=== PATIENT | male | born 1950 | race Caucasian/White ===

== ENCOUNTER 2016-12-07 14:09 | Inpatient (IN) ==
[2016-12-07] MEDS ORDERED: traMADol 50 MG TABLET PO PRN (14:14)
[2016-12-07] MEDS ORDERED: ACETAMINOPHEN 325 MG TABLET PO PRN (14:14)
[2016-12-07] MEDS ORDERED: ONDANSETRON 4 MG/2 ML VIAL IV PRN (14:14)
--- NOTE | 2016-12-07 15:34 | Internal Med History&Physical ---
Assessment and Plan (1) Acute urinary tract infection Status: Acute Assessment and plan: 66-year-old male admitted to acute care * Acute urinary tract infection with flank pain. I am concerned about septicemia. Start patient on broad-spectrum antibiotics. Will also get blood cultures. Urine cultures were done in the office. His white count is quite high. We will start him on IV fluids. * Hypertension. We will continue his blood pressure medication if his pressure remained stable * Hyperlipidemia. Continue current treatment * GERD. He will be continued on his medications. * Discussed with patient and his Current Visit: Yes (2) Hyperlipidemia Status: Acute Current Visit: Yes (3) Hypertension Status: Acute Current Visit: Yes (4) Gastroesophageal reflux disease Status: Acute Current Visit: Yes (5) Osteoarthritis Status: Acute Current Visit: Yes History of Present Illness Chief complaint: High-grade fever with dysuria and back pain History of present illness: Mr. Lara is a 66 year old male with history of hypertension, hyperlipidemia, gastroesophageal reflux disease and osteoarthritis who presented to the office with 24 hours complaining of 24 hours history of lower back pain associated with urgency frequency dysuria and incontinence of urine. He has been running high grade fever especially during the last night. He feels quite sick and not well. He has been dizzy at times. He denies any nausea vomiting or diarrhea. He denies any chest pain or shortness of breath. He lives at home with his . No history of smoking or alcohol use Medications Lipitor 10 mg daily HCTZ 25 mg daily Atenolol 100 mg daily Nifedipine ER 90 mg daily Prevacid 15 mg daily Micro-K 8 mEq daily Mobic 7.5 mg daily Medical,Surgical,& Family Hx - Medical History Cardio: History of: Hypertension Endocrine: History of: Dyslipidemia Genitourinary: History of: Prostate Problems (TURP) Gastrointestinal: History of: GERD Musculoskeletal: History of: Back/Neck Problems, Musculoskeletal Problems ( Degenerative disc disease) - Surgical History Reproductive Surgeries: Surgical HX of;: Prostate Surgery (TURP) Additional Surgical History: Surgery for nerve entrapment - Family History Family History: Reports;: Family Heart Disease, Family Hypertension, Family Stroke - Social History Smoking Status: Never smoker Frequency of Alcohol Use: None Marital Status: Lives With:: Spouse Functional capacity: independent ambulation 12 point system: reviewed and no additional remarkable complaints except as stated (As mentioned in HPI) Exam - Constitutional Exam: Examination: GENERAL: NAD. Ill-appearing male HEENT: PERRLA. EOMI. Mucous membranes are moist. NECK: Neck is supple. No JVD. No carotid bruit. No thyromegaly. CVS: Regular rate and rhythm. S1 and S2 are normal. RESPIRATORY: Lungs are clear. No rales or rhonchi. ABDOMEN: Soft and nontender. Bowel sounds are present. No hepatosplenomegaly. Tenderness is present in the right flank posteriorly EXT: No edema. Peripheral pulses are present. 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 Cranial nerves II through XII are grossly intact. Motor strength is 5 over 5 both upper and lower extremities. SKIN: Warm and dry. MSK: No obvious deformity. Results - Labs Labs: His white count is 26,000. H&H is 14.8 and 41.7. Neutrophil count is 87%. Potassium is 3.4. BUN and creatinine is 20 and 1.09. Urinalysis shows 15-25 WBCs with 1+ bacteria and small blood and leukocyte esterase with positive nitrite
[2016-12-07] MEDS ORDERED: POTASSIUM CHLORIDE 8 MEQ CAPSULE PO SCH (16:00)
[2016-12-07 16:04] LABS: Basophils # 0.1 10*3/uL (0.0-0.2); Basophils % 0.3 % (0.0-0.8); Immature Granulocytes % 1.2 %; Immature Granulocytes Absolute 0.32 #; Lymphocytes % 7.3 % (21.2-54.2); Mean Corpuscular HGB Conc 34.9 GM/DL (32-36); Mean Corpuscular Hemoglobin 30 PG (27-34); Mean Corpuscular Volume 85.8 FL (87-102); Mean Platelet Volume 11.4 FL (9.6-12.0); Monocytes # 1.6 10*3/uL (0.11-0.8); Monocytes % 5.7 % (1.7-12.7); Neutrophils # 23.4 10*3/uL (1.4-7.4); Neutrophils % 85.5 % (38.7-73.9); Platelet Count 221 T/CUMM (130-400); Red Blood Count 5.01 MC/CUMM (3.8-5.5); Red Cell Distribution Width 13.3 % (9.3-17.3); White Blood Count 27.4 T/CUMM (4-12)
[2016-12-07 17:42] LABS: Band Neutrophils 2 % (0-10); Lymphocytes 13 % (20-55); Platelet Estimate Normal; Segmented Neutrophils 83 % (50-85); Total Cells Counted 100
[2016-12-07] MEDS: cefTRIAXone 1,000 MG in SODIUM CHLORIDE 0.9% 100 ML IV SCH (17:52)
[2016-12-07] MEDS: SODIUM CHLORIDE 0.9% 1,000 ML IV SCH (17:52)
[2016-12-07] MEDS: LEVOFLOXACIN INJ 500 MG in PREMIX 1 EACH IV SCH (17:54)
[2016-12-07] MEDS: ATORVASTATIN 10 MG TABLET PO SCH (21:02)
[2016-12-07] MEDS: DOCUSATE SODIUM 100 MG CAPSULE PO SCH (21:03)
[2016-12-08] MEDS: SODIUM CHLORIDE 0.9% 1,000 ML IV SCH ×4 (03:50→13:31)
[2016-12-08 05:58] LABS: Calcium 8.3 MG/DL (8.5-10.1); Osmolality,Calculated 285.1 MOS/KG (273-304); Potassium 3.2 MMOL/L (3.5-5.1)
--- NOTE | 2016-12-08 08:29 | Internal Med Progress Note ---
Assessment and Plan (1) Acute urinary tract infection Status: Acute Assessment and plan: 66-year-old male admitted to acute care * Acute urinary tract infection with flank pain. Clinically he looks better. Continue IV antibiotics. Cultures are pending * Hypertension. Stable * Hyperlipidemia. Stable * GERD. He will be continued on his medications. * Continue current treatment Current Visit: Yes (2) Hyperlipidemia Status: Acute Current Visit: Yes (3) Hypertension Status: Acute Current Visit: Yes (4) Gastroesophageal reflux disease Status: Acute Current Visit: Yes (5) Osteoarthritis Status: Acute Current Visit: Yes Internal Medicine - PN: Subj Interval history: He is feeling better today. He is still having dysuria. His temperature was over 102 last night. Exam (Progress Note) - Constitutional Vitals: Period Temp Pulse Resp BP Sys/Lucio Pulse Ox Last 24 Hr 98.7 F-102.0 F 57-65 18-20 107-139/48-89 93-95 Exam: Examination: GENERAL: NAD. HEENT: PERRLA. EOMI. NECK: Neck is supple. CVS: Regular rate and rhythm. S1 and S2 are normal. RESPIRATORY: Lungs are clear. ABDOMEN: Soft and nontender. Bowel sounds are present. No hepatosplenomegaly. EXT: No edema. Peripheral pulses are present. 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 Results - Labs CBC & BMP: 12/07/16 15:47 12/08/16 05:17 Lab Results: I have reviewed the past 24 hour labs
[2016-12-08] MEDS ORDERED: POTASSIUM CHLORIDE 8 MEQ CAPSULE PO SCH (09:00)
[2016-12-08] MEDS: POTASSIUM CHLORIDE 8 MEQ CAPSULE PO SCH ×3 (09:18→21:42)
[2016-12-08] MEDS: hydroCHLOROthiazide 25 MG TABLET PO SCH (09:19)
[2016-12-08] MEDS: ATENOLOL 100 MG TABLET PO SCH (09:19)
[2016-12-08] MEDS: PANTOPRAZOLE 40 MG TABLET PO SCH ×2 (09:19)
[2016-12-08] MEDS: DOCUSATE SODIUM 100 MG CAPSULE PO SCH ×2 (09:19→21:43)
[2016-12-08] MEDS ORDERED: NITROGLYCERIN SL 0.4 MG TABLET SL ONE ×3 (13:52→13:56)
[2016-12-08] MEDS ORDERED: NITROGLYCERIN SL 0.4 MG TABLET SL PRN (13:58)
--- NOTE | 2016-12-08 14:19 | EKG Report ---
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
--- NOTE | 2016-12-08 14:22 | XRay Report ---
Exam: XR chest 1V Date: 12/08/2016 1:57 PM Indication: Chest pain Comparison: None Technical: AP portable Findings: Mild prominence the cardiac silhouette. ASVD is present. No obvious infiltrate. A few reticular nodular densities present. The mediastinum and bony structures reveal no acute findings. Degenerative change present thoracic spine. Impression: 1. A few reticular nodular densities without overt congestive failure consolidating infiltrates. PROCEDURE INTERPRETED AT [facility] DEPARTMENT OF RADIOLOGY Final Report Signed by: Dr. Valentino Pat
[2016-12-08] MEDS: cefTRIAXone 1,000 MG in SODIUM CHLORIDE 0.9% 100 ML IV SCH (16:01)
--- NOTE | 2016-12-08 16:05 | Cardiology Progress Note ---
Cardiology - PN: Subj Interval history: Cardiology consult 66-year-old man admitted yesterday with UTI with complaints of left flank pain and frequency. Urine cultures growing gram-negative rods. Today he had soup and crackers in bed and 30 minutes later developed severe midsternal chest pain while laying flat. He was given 1 single nitro and it seemed to help. EKG shows sinus rhythm with mild ST-T wave changes. Chest x-ray shows a normal heart size and no infiltrate or effusion. The patient is active. He walks for 5 miles 3 times a week with his walking buddies at [facility]. He denies exertional chest pain syncope or excessive dyspnea. He does have GE reflux symptoms takes Prevacid every morning. Pizza, chili, barbecue, own juice bananas cause heartburn. He denies melena. No documented ulcer disease. He does have chronic hypertension has been under treatment for about 35 years. No history of stroke. The patient a lifetime non -smoker. He rarely has an alcoholic drink. No history of diabetes. He does have arthritis and takes Mobic 7.5 g daily. He sleeps on one pillow and has nocturia 2 or 390 which is chronic for him. Status post TURP in 2006. He does have a clawed right hand secondary to nerve damage/palsy from the remote past. He has white count is 27.4 with a left shift. No temperature. He had a normal stress of Dr. Araiza about 10 years ago. He is 6 feet 2 inches tall toward 22 pounds. He is for 47 years. He has 2 children and 4 grandchildren. 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 Lab data White count 27.4 with left shift hemoglobin 15 hematocrit 43.0 Sodium 142 potassium 3.2 chloride 105 CO2 27 BUN 17 creatinine 1.10 glucose 113 urine culture growing gram-negative rods Blood pressure is 142/80 pulse is 78 and respirations 18 bilateral arcus no xanthelasma no carotid bruit flat neck veins clear lungs regular rhythm no murmur or gallop no chest wall tenderness to palpation. Obese soft benign femoral pulses 2+ without bruits of pulses 2+ symmetric Impression UTI with gram-negative rods. White count 27.4 with left shift. 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7 Eos % (Auto) 0.0 Baso % (Auto) 0.3 Neut # (Auto) 23.4 H Lymph # (Auto) 2.0 Stokes # (Auto) 1.6 H Eos # (Auto) 0.0 Baso # (Auto) 0.1 Total Counted 100 Immature Gran % 1.2 Nucleated RBC % 0.0 Immature Gran # 0.32 Segmented Neutrophils 83 Band Neutrophils 2 Lymphocytes 13 L Monocytes 2 Nucleated RBCs # 0.00 Platelet Estimate Normal Morphology Comment Sodium 142 Potassium 3.2 L Chloride 105 Carbon Dioxide 27 Anion Gap 13.2 BUN 17 Creatinine 1.10 GFR Calculation 90 BUN/Creatinine Ratio 15.00 Glucose 113 H Calculated Osmolality 285.1 Calcium 8.3 L Troponin I 0.082 H
--- NOTE | 2016-12-08 16:22 | Internal Med Progress Note ---
Assessment and Plan (1) Acute urinary tract infection Status: Acute Assessment and plan: 66-year-old male admitted to acute care * Acute urinary tract infection with flank pain. Clinically he looks better. Continue IV antibiotics. Cultures are pending * Hypertension. Stable * Hyperlipidemia. Stable * GERD. He will be continued on his medications. * Continue current treatment Current Visit: Yes (2) Hyperlipidemia Status: Acute Current Visit: Yes (3) Hypertension Status: Acute Current Visit: Yes (4) Gastroesophageal reflux disease Status: Acute Current Visit: Yes (5) Osteoarthritis Status: Acute Current Visit: Yes Internal Medicine - PN: Subj Interval history: Patient had an episode this afternoon after eating lunch when he developed chest pain. It was a pressure-like pain in the middle of the chest going into his back. It was not associated with any nausea or vomiting. He had an EKG done and was given sublingual nitroglycerin which helped his pain. Patient was moved to telemetry. He is comfortable now. He has been seen in consultation by cardiology. Patient did spike a temp this afternoon. He is on antibiotics and his cultures are pending. His troponin had a slight bump. Will do another set of cardiac enzymes later on today and tomorrow morning. Patient is quite active and walks at least 5 miles 3-4 times a week. On examination. Lungs: Clear CVS: First and second heart sounds are normal. Regular rate and rhythm Abdomen: Soft and nontender Extremities: No edema Assessment and plan: Atypical chest pain. He will be continued on monitor. Echocardiogram will be checked. Gram-negative rods in urine. Continue IV antibiotic Discussed with patient and his family Exam (Progress Note) - Constitutional Vitals: Period Temp Pulse Resp BP Sys/Lucio Pulse Ox Last 24 Hr 97.4 F-102.0 F 57-69 16-20 107-139/48-66 93-95 Results - Labs CBC & BMP: 12/07/16 15:47 12/08/16 05:17
--- NOTE | 2016-12-08 16:24 | EKG Report ---
Stationary ECG Study [facility] Test Date: 12/08/2016 4:24:07 PM Pat Name: BETITO BUCK Department: Room: 296 Gender: M Chair: : 1950 Requested by: Juan Adkins Order Number: [id number] Reading MD: VAHE TAVAREZ Intervals [place] Rate: 66 P: 17 WI: 165 QRS: 60 QRSD: 93 T: 62 QT: 372 QTc: 386 Interpretive Statements SINUS RHYTHM WITH OCCASIONAL SUPRAVENTRICULAR PREMATURE COMPLEXES NONSPECIFIC T-WAVE ABNORMALITY Electronically Signed On 12-08-16 18:38:24 CDT by VAHE TAVAREZ [id number]
[2016-12-08] MEDS: LEVOFLOXACIN INJ 500 MG in PREMIX 1 EACH IV SCH (17:20)
[2016-12-08] MEDS: ATORVASTATIN 10 MG TABLET PO SCH (21:43)
[2016-12-08 22:16] LABS: Troponin I Only 0.112 NG/ML (0.00-0.045)
[2016-12-09] MEDS: SODIUM CHLORIDE 0.9% 1,000 ML IV SCH ×3 (01:36→14:47)
[2016-12-09 06:23] LABS: Basophils % 0.2 % (0.0-0.8); Eosinophils % 0.1 % (0.00-10.9); Hematocrit 39.4 VOL% (42.0-52.0); Immature Granulocytes % 0.5 %; Immature Granulocytes Absolute 0.07 #; Lymphocytes # 1.7 10*3/uL (1.4-4.0); Lymphocytes % 12.7 % (21.2-54.2); Mean Corpuscular HGB Conc 35.5 GM/DL (32-36); Mean Corpuscular Hemoglobin 30 PG (27-34); Mean Platelet Volume 10.8 FL (9.6-12.0); Monocytes # 0.8 10*3/uL (0.11-0.8); Monocytes % 6.2 % (1.7-12.7); Neutrophils # 10.4 10*3/uL (1.4-7.4); Neutrophils % 80.3 % (38.7-73.9); Platelet Count 199 T/CUMM (130-400); Red Blood Count 4.69 MC/CUMM (3.8-5.5); Red Cell Distribution Width 13.1 % (9.3-17.3)
[2016-12-09 06:50] LABS: Calcium 8.7 MG/DL (8.5-10.1); Osmolality,Calculated 279.5 MOS/KG (273-304); Potassium 3.3 MMOL/L (3.5-5.1)
--- NOTE | 2016-12-09 09:13 | Internal Med Progress Note ---
Assessment and Plan (1) Acute urinary tract infection Status: Acute Assessment and plan: 66-year-old male admitted to acute care * Acute urinary tract infection with flank pain. Probably has prostatitis. Urine cultures are pending. He is having urinary retention. Will consult Dr. Nixon who has seen him in the past * No further episodes of chest pain. * Replace potassium * Hypertension. Stable * Hyperlipidemia. Stable * GERD. He will be continued on his medications. * Continue current treatment Current Visit: Yes (2) Hyperlipidemia Status: Acute Current Visit: Yes (3) Hypertension Status: Acute Current Visit: Yes (4) Gastroesophageal reflux disease Status: Acute Current Visit: Yes (5) Osteoarthritis Status: Acute Current Visit: Yes Internal Medicine - PN: Subj Interval history: He is complaining of urinary retention. He is having spasms and is unable to urinate. He denies any fever or chills. He denies any chest pain or shortness of breath Exam (Progress Note) - Constitutional Vitals: Period Temp Pulse Resp BP Sys/Lucio Pulse Ox Last 24 Hr 97.4 F-101.8 F 60-95 16-22 122-143/65-85 93-99 Exam: Examination: GENERAL: In no obvious discomfort HEENT: PERRLA. EOMI. NECK: Neck is supple. CVS: Regular rate and rhythm. S1 and S2 are normal. RESPIRATORY: Lungs are clear. ABDOMEN: Soft and nontender. Bowel sounds are present. No hepatosplenomegaly. EXT: No edema. Peripheral pulses are present. 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 Results - Labs CBC & BMP: 12/09/16 06:13 12/09/16 06:13 Lab Results: I have reviewed the past 24 hour labs
[2016-12-09] MEDS: DOCUSATE SODIUM 100 MG CAPSULE PO SCH ×2 (10:09→21:10)
[2016-12-09] MEDS: POTASSIUM CHLORIDE 8 MEQ CAPSULE PO SCH ×3 (10:09→21:11)
[2016-12-09] MEDS: ATENOLOL 100 MG TABLET PO SCH (10:10)
[2016-12-09] MEDS: PANTOPRAZOLE 40 MG TABLET PO SCH ×4 (10:10→16:58)
[2016-12-09] MEDS: hydroCHLOROthiazide 25 MG TABLET PO SCH (10:10)
--- NOTE | 2016-12-09 12:12 | Urology Progress Note ---
Urology - PN: Subj Interval history: This 66-year-old white male is an outpatient Dr. Nixon and has a past history of a TUR of the prostate. During the night he was unable to void and a bladder scan indicates a large residual urine. Nurses attempted 100 and out catheterization but met resistance in the area of the prostate. I attempted to dilate the urethra but I was unable to get a filiform into the bladder. The suprapubic area was then prepped with Betadine and infiltrated with small amount of lidocaine plain and a small incision was made over the suprapubic area. Spinal needle was inserted into the bladder and clear urine was aspirated. A suprapubic catheter on a trocar was then introduced into the bladder and a large amount of clear urine was drained. The catheter was taped to the abdomen. The patient will require elective cystoscopic exam Exam - Constitutional Vitals: Period Temp Pulse Resp BP Sys/Lucio Pulse Ox Last 24 Hr 97.4 F-101.8 F 60-95 16-22 122-143/65-85 93-99 Results - Labs CBC & BMP: 12/09/16 06:13 12/09/16 06:13
--- NOTE | 2016-12-09 15:30 | Fluoroscopy Report ---
Fluoroscopic cystogram Indication: Suprapubic catheter placement Findings: Injection was performed under fluoroscopy through suprapubic catheter using 25 cc Cysto-Conray. Contrast passes preferentially into the anterior abdominal wall to the left. There is suggestion of small amount of contrast within the bladder. There is suggestion of small amount of peritoneal leak as well. Fluoroscopy time 50 seconds Impression: Contrast preferentially filling extraperitoneal space anteriorly and to the left. There is suggestion of small amount of bladder filling. There is suggestion of small amount of intraperitoneal leak as well. PROCEDURE INTERPRETED AT [facility] DEPARTMENT OF RADIOLOGY Final Report Signed by: Dr. Bhavesh Myers
--- NOTE | 2016-12-09 16:08 | Event Note ---
66-year-old male, long time establish patient of Dr. Matheus Nixon, who developed urinary retention at some point this morning after recent TUR. Dr. Carias performed semiemergent suprapubic catheterization at approximately noon today. At some point this afternoon, the suprapubic catheter was dislodged. Cystogram was then performed showing extravasation of contrast into the pelvis outside of the urinary bladder and clear indication that the suprapubic tube had been withdrawn from the bladder lumen. According to Dr. Carias's note, they were unable to pass Quinones catheter via urethra. Cystoscopy will be necessary. Dr. Nixon, reportedly via nursing, requested IR to replace the catheter along the existing tract. There is no tract present on the cystogram, and certainly no tract present after only a couple of hours of catheter positioning. This will require a new superpubic catheter placement into a distended bladder, presumably by urology. Unable to reach Dr. Nixon via phone. Case discussed with Dr. Sifuentes.
[2016-12-09] MEDS: cefTRIAXone 1,000 MG in SODIUM CHLORIDE 0.9% 100 ML IV SCH (16:43)
[2016-12-09] MEDS ORDERED: POTASSIUM CHLORIDE RIDER 10 MEQ in PREMIX 1 EACH IV PRN (17:02)
--- NOTE | 2016-12-09 17:09 | Cardiology Progress Note ---
<Mariah Yip - Last Filed: 12/09/16 16:52> Assessment and Plan (1) Acute urinary tract infection Status: Acute Assessment and plan: See plan of care listed below. Current Visit: Yes (2) Gastroesophageal reflux disease Status: Chronic Assessment and plan: See plan of care listed below. Current Visit: Yes (3) Hyperlipidemia Status: Chronic Assessment and plan: See plan of care listed below. Current Visit: Yes (4) Hypertension Status: Chronic Assessment and plan: See plan of care listed below. Current Visit: Yes (5) Leukocytosis Status: Acute Assessment and plan: See plan of care listed below. Current Visit: Yes (6) Urinary retention Status: Acute Assessment and plan: See plan of care listed below. Current Visit: Yes (7) Hypokalemia Status: Acute Assessment and plan: See plan of care listed below. Current Visit: Yes Cardiology - PN: Subj Interval history: [place] Pr[place]er: Dr. Cerrato (new) PCP: Dr. Adkins SUMMARY: Mr. Lara is a 66 year old male with history of hypertension, hyperlipidemia, gastroesophageal reflux disease and osteoarthritis who was directly admitted per Dr. Adkins with a 24 hour history of lower back pain associated with urgency, frequency, dysuria and incontinence of urine. Urine culture was positive for E. coli. IV antibiotics were initiated. Leukocytosis noted with left shift. Blood cultures no growth at 1 day. Yesterday, he developed chest pain, after eating lunch. Subsequently, heart alert was called overhead and patient was transferred to the telemetry unit. EKG revealed sinus rhythm with mild ST-T wave changes. Chest x-ray shows a normal heart size and no infiltrate or effusion. Echocardiogram was obtained, results are pending. Today, patient is without chest pain, heaviness and tightness. Troponin was mildly elevated, 0.1 this morning. CPK and CK-MB negative. Patient developed urinary retention this afternoon. Subsequently, suprapubic Quinones catheter was placed by Dr. Carias. Vital signs are stable. Creatinine reviewed. White blood cell count remains elevated at 13. Potassium low at 3.3. Potassium muscle protocol ordered. PSA 16.3. Patient normal sinus rhythm with heart rates in the 60s without any overt arrhythmias or ectopy noted. Assessment/plan: 1. ATYPICAL CHEST PAIN - Has not had recurrent chest pain. Most likely secondary to reflux. PPI has been added. Echocardiogram results pending. 2. UTI - Urine culture is positive for E. coli. Management per attending. Continue IV antibiotics. Blood cultures negative at 1 day. 3. HYPERLIPIDEMIA - Continue current plan of care with lipid lowering agent. Lipid panel added to morning labs. 4. GERD - PPI added to medication regimen. 5. LEUKOCYTOSIS WITH LEFT SHIFT - Blood cultures negative at 1 day. Continue current plan of care with IV antibiotics. 6. URINARY RETENTION - Patient had suprapubic Quinones placed per Dr. Carias. Defer management of this to urology. 7. HYPOKALEMIA -Potassium requested protocol ordered. Daily BMP. Further plan and addendum to follow per Dr. Cerrato. Exam (Progress Note) - Constitutional Vitals: Period Temp Pulse Resp BP Sys/Lucio Pulse Ox Last 24 Hr 98.2 F-101.8 F 60-95 18-22 122-143/65-85 93-99 General appearance: normal weight, no acute distress - Head Head exam: Present: normal inspection, normocephalic, atraumatic - Neck Neck exam: Present: normal inspection. Absent: lymphadenopathy, tenderness, thyromegaly - Respiratory Respiratory exam: Present: clear to auscultation bilaterally. Absent: accessory muscle use, chest wall tenderness, rales, rhonchi, stridor, wheezes - Cardiovascular Cardiovascular exam: Present: regular rate and rhythm. Absent: gallop, rubs - GI/Abdominal GI/Abdominal exam: Present: normal bowel sounds, soft. Absent: distended, firm , mass, tenderness - Extremities Exam Extremities exam: Present: normal inspection, normal capillary refill. Absent: calf tenderness, edema - Neurological Exam Neurological exam: Present: alert, oriented X3 - Psychiatric Psychiatric exam: Present: normal affect, normal mood - Skin Skin exam: Present: normal color, warm, dry Result/EKG - Labs CBC & BMP: 12/09/16 06:13 12/09/16 06:13 Lab Results: I have reviewed the past 24 hour labs Labs: Laboratory Results - last 24 hr 12/08/16 12/08/16 12/09/16 16:38 21:27 06:13 WBC 13.0 H D RBC 4.69 Hgb 14.0 Hct 39.4 L MCV 84.0 L MCH 30 MCHC 35.5 RDW 13.1 Plt Count 199 MPV 10.8 Neut % (Auto) 80.3 H Lymph % (Auto) 12.7 L Lares % (Auto) 6.2 Eos % (Auto) 0.1 Baso % (Auto) 0.2 Neut # (Auto) 10.4 H Lymph # (Auto) 1.7 Lares # (Auto) 0.8 Eos # (Auto) 0.0 Baso # (Auto) 0.0 Immature Gran % 0.5 Nucleated RBC % 0.0 Immature Gran # 0.07 Nucleated RBCs # 0.00 Sodium Potassium Chloride Carbon Dioxide Anion Gap BUN Creatinine GFR Calculation BUN/Creatinine Ratio Glucose Calculated Osmolality Calcium Total Creatine Kinase 82 90 CK-MB (CK-2) 1.1 1.1 Troponin I 0.090 H 0.112 H D PSA Diagnostic 12/09/16 12/09/16 12/09/16 06:13 06:13 06:13 WBC RBC Hgb Hct MCV MCH MCHC RDW Plt Count MPV Neut % (Auto) Lymph % (Auto) Lares % (Auto) Eos % (Auto) Baso % (Auto) Neut # (Auto) Lymph # (Auto) Lares # (Auto) Eos # (Auto) Baso # (Auto) Immature Gran % Nucleated RBC % Immature Gran # Nucleated RBCs # Sodium 139 Potassium 3.3 L Chloride 105 Carbon Dioxide 22 Anion Gap 15.3 H BUN 16 Creatinine 1.10 GFR Calculation 90 BUN/Creatinine Ratio 14.00 Glucose 129 H Calculated Osmolality 279.5 Calcium 8.7 Total Creatine Kinase 146 D CK-MB (CK-2) 2.9 Troponin I 0.100 H PSA Diagnostic 16.3 H <Noe Cerrato - Last Filed: 12/09/16 17:39> Cardiology - PN: Subj Interval history: Cardiology note E. coli UTI. Blood cultures negative at 24 hours. Telemetry has been benign. Status post suprapubic Quinones catheter placement Echo pending. will check Exam (Progress Note) - Constitutional Vitals: Period Temp Pulse Resp BP Sys/Lucio Pulse Ox Last 24 Hr 98.2 F-101.8 F 60-95 18-22 122-143/65-85 93-99 Result/EKG - Labs CBC & BMP: 12/09/16 06:13 12/09/16 06:13 Labs: Laboratory Results - last 24 hr 12/08/16 12/09/1612/09/17 21:27 06:13 06:13 WBC 13.0 H D RBC 4.69 Hgb 14.0 Hct 39.4 L MCV 84.0 L MCH 30 MCHC 35.5 RDW 13.1 Plt Count 199 MPV 10.8 Neut % (Auto) 80.3 H Lymph % (Auto) 12.7 L Lares % (Auto) 6.2 Eos % (Auto) 0.1 Baso % (Auto) 0.2 Neut # (Auto) 10.4 H Lymph # (Auto) 1.7 Lares # (Auto) 0.8 Eos # (Auto) 0.0 Baso # (Auto) 0.0 Immature Gran % 0.5 Nucleated RBC % 0.0 Immature Gran # 0.07 Nucleated RBCs # 0.00 Sodium 139 Potassium 3.3 L Chloride 105 Carbon Dioxide 22 Anion Gap 15.3 H BUN 16 Creatinine 1.10 GFR Calculation 90 BUN/Creatinine Ratio 14.00 Glucose 129 H Calculated Osmolality 279.5 Calcium 8.7 Total Creatine Kinase 90 CK-MB (CK-2) 1.1 Troponin I 0.112 H D PSA Diagnostic 12/09/16 12/09/16 06:13 06:13 WBC RBC Hgb Hct MCV MCH MCHC RDW Plt Count MPV Neut % (Auto) Lymph % (Auto) Lares % (Auto) Eos % (Auto) Baso % (Auto) Neut # (Auto) Lymph # (Auto) Lares # (Auto) Eos # (Auto) Baso # (Auto) Immature Gran % Nucleated RBC % Immature Gran # Nucleated RBCs # Sodium Potassium Chloride Carbon Dioxide Anion Gap BUN Creatinine GFR Calculation BUN/Creatinine Ratio Glucose Calculated Osmolality Calcium Total Creatine Kinase 146 D CK-MB (CK-2) 2.9 Troponin I 0.100 H PSA Diagnostic 16.3 H
--- NOTE | 2016-12-09 17:53 | Urology Progress Note ---
Urology - PN: Subj Interval history: Mr. Lara is a 66-year-old who is known to me. I was unfortunately tied up this morning and the catheter was needed. Dr. Carias was kind enough to come in attempt to place urethral catheter. He was able to place a suprapubic catheter and had good return but the catheter now is not draining properly. I came up to see the patient. I attempted urethral access but was unsuccessful. I manipulated the suprapubic tube and it does not move and it clearly is not in the bladder. I was able to find the bladder with a spinal needle but I was not able to get any return from the suprapubic tube. So all things considered, I recommended cystoscopy. We will obtain a urethral access with this. I feel like he is got a bladder neck contracture and may have to incise that to get a catheter in. I have explained this to the patient and his family. Risks, complications, outcomes, sequelae, prognosis and alternative therapy was discussed. They understood and agreed to proceed. 45 minutes Exam - Constitutional Vitals: Period Temp Pulse Resp BP Sys/Lucio Pulse Ox Last 24 Hr 98.2 F-101.8 F 60-95 18-22 122-143/65-85 93-99 Results - Labs CBC & BMP: 12/09/16 06:13 12/09/16 06:13
[2016-12-09] MEDS ORDERED: GENTAMICIN INJ 80 MG in PREMIX 1 EACH IV ONE (18:00)
[2016-12-09] MEDS: LEVOFLOXACIN INJ 500 MG in PREMIX 1 EACH IV SCH (18:09)
[2016-12-09] MEDS ORDERED: METOCLOPRAMIDE 10 MG/2 ML VIAL IV ONE (18:11)
[2016-12-09] MEDS ORDERED: FAMOTIDINE 20 MG/2 ML VIAL IV ONE (18:12)
--- NOTE | 2016-12-09 18:24 | ECHO Report ---
Jenna Lara Exam Date: 12/09/2016 11:43 Referring Physician: Technologist: Jenna Newberry Age: 66 Ht (in): 74 Wt (lb): 221 Gender: M Exam Location: [facility] Echo Indications: Essential (primary) hypertension, Hyperlipidemia, unspecified, UTI, GERD BP: 122 / 73 HR: 81 Rhythm: Sinus Technical Quality: Fair IMPRESSIONS Normal left ventricular cavity size. Mild left ventricular hypertrophy. Left ventricular ejection fraction is estimated at 55 %. The right ventricle is normal in size and function. The right atrium is mildly enlarged. The left atrium is mildly enlarged. Morphologically normal mitral valve. Trace to mild mitral valve regurgitation. Morphologically normal aortic valve without significant sclerosis or stenosis. There is no aortic regurgitation. Morphologically normal tricuspid valve. Trace to mild tricuspid valve regurgitation. Tricuspid regurgitation velocities suggest a PAP of 54 mmHg. Morphologically normal pulmonic valve without significant stenosis. There is no pulmonic regurgitation. Normal pericardium without effusion. Normal ascending aorta dimension. MEASUREMENTS (Male / Female) Normal Values 2D ECHO LV Diastolic Diameter PLAX 4.6 cm 4.2 - 5.9 / 3.9 - 5.3 cm LV Systolic Diameter PLAX 2.6 cm LV Fractional Shortening PLAX 43.6 % IVS Diastolic Thickness 1.1 cm 0.6 - 1.0 / 0.6 - 0.9 cm LVPW Diastolic Thickness 1.1 cm 0.6 - 1.0 / 0.6 - 0.9 cm RV Internal Dim ED PLAX 3.9 cm Aortic Root Diameter 3.0 cm LA Systolic Diameter LX 3.8 cm 3.0 - 4.0 / 2.7 - 3.8 cm DOPPLER TR Peak Velocity 331.0 cm/s TR Peak Gradient 43.8 mmHg FINDINGS Left Ventricle Normal left ventricular cavity size. Mild left ventricular hypertrophy. Left ventricular ejection fraction is estimated at 55 %. Right Ventricle The right ventricle is normal in size and function. Right Atrium The right atrium is mildly enlarged. Left Atrium The left atrium is mildly enlarged. Mitral Valve Morphologically normal mitral valve. Trace to mild mitral valve regurgitation. Aortic Valve Morphologically normal aortic valve without significant sclerosis or stenosis. There is no aortic regurgitation. Tricuspid Valve Morphologically normal tricuspid valve. Trace to mild tricuspid valve regurgitation. Tricuspid regurgitation velocities suggest a PAP of 54 mmHg. Pulmonic Valve Morphologically normal pulmonic valve without significant stenosis. There is no pulmonic regurgitation. Pericardium Normal pericardium without effusion. Aorta Normal ascending aorta dimension. Lion Fields MD (Electronically Signed) Final Date: 09 Dec 2016 18:23
[2016-12-09] MEDS ORDERED: PROPOFOL 200 MG/20 ML VIAL IV ONE (18:55)
[2016-12-09] MEDS ORDERED: GLYCOPYRROLATE 0.4 MG/2 ML VIAL ONE (18:55)
[2016-12-09] MEDS ORDERED: ONDANSETRON 4 MG/2 ML VIAL ONE (18:55)
[2016-12-09] MEDS ORDERED: LIDOCAINE 2% 5 ML VIAL ONE (18:55)
--- NOTE | 2016-12-09 19:29 | Operative Note ---
Date of procedure: 12/09/16 Pre-op diagnosis: BPH, urinary retention, UTI Post-op diagnosis: other (Urethral stricture) Procedure: 66-year-old gentleman known to me. He has had 3 or years ago. Difficult to get in a urethral access and a suprapubic catheter was placed. It did not drain very well and I then attempted to do the same and just elected to cystoscope him. I explained the situation to the family and the patient. Risks , complications, outcomes, sequelae, prognosis was explained patient understood and agreed to proceed. Patient brought cystoscopy suite placed table supine position. He was given a general LMA anesthetic in place lithotomy position prepared and draped in usual sterile manner. The 22 [place] cystourethroscope passed under direct vision. Just distal to the sphincter there is a stricture. The cystoscope was then removed. The optical urethrotome was then advanced under direct vision. The stricture was incised. Following this urethrotome was then advanced in the bladder. The prostate is coapting with large median lobe and lateral lobes. The bladder itself has a puncture wound at the dome. The urethrotome was then removed and a 20 [place] catheter was inserted and left to gravity drainage. Patient tolerates procedure well was sent to recovery room in stable condition. All sponge, needle enhancement counts correct 2. Implants: 20 [place] Quinones Anesthesia: GETA Surgeon / Physician: Matheus Nixon Estimated blood loss: other (2cc) Specimens: none sent Condition: stable Disposition: PACU Results - Labs CBC & BMP: 12/09/16 06:13 12/09/16 06:13 Discharge Plan - Discharge Medications No Action Atorvastatin [Lipitor] 10 mg PO BEDTIME NIFEdipine XL TAB [Procardia Xl] 90 mg PO BEDTIME Lansoprazole [Prevacid] 15 mg PO DAILY Atenolol 100 mg PO DAILY Potassium Chloride Cap/Tab [Micro K] 8 meq PO DAILY hydroCHLOROthiazide [Hydrochlorothiazide] 25 mg PO DAILY - Follow Up or Referral - Forms/Instructions
[2016-12-09] MEDS ORDERED: fentaNYL 100 MCG/2 ML VIAL ONE (19:45)
[2016-12-09] MEDS ORDERED: MIDAZOLAM 2 MG/2 ML VIAL ONE (19:45)
[2016-12-09] MEDS: ATORVASTATIN 10 MG TABLET PO SCH (21:10)
[2016-12-10] MEDS: SODIUM CHLORIDE 0.9% 1,000 ML IV SCH ×2 (02:17→09:05)
[2016-12-10 05:13] LABS: Basophils % 0.4 % (0.0-0.8); Eosinophils # 0.1 10*3/uL (0.0-0.87); Eosinophils % 0.8 % (0.00-10.9); Hemoglobin 11.5 GM/DL (14.0-18.0); Immature Granulocytes % 0.6 %; Immature Granulocytes Absolute 0.05 #; Lymphocytes % 22.8 % (21.2-54.2); Mean Corpuscular HGB Conc 33.8 GM/DL (32-36); Mean Corpuscular Hemoglobin 29 PG (27-34); Mean Corpuscular Volume 85.4 FL (87-102); Mean Platelet Volume 11.3 FL (9.6-12.0); Monocytes % 11.9 % (1.7-12.7); Neutrophils # 5.4 10*3/uL (1.4-7.4); Neutrophils % 63.5 % (38.7-73.9); Platelet Count 204 T/CUMM (130-400); Red Blood Count 3.98 MC/CUMM (3.8-5.5); Red Cell Distribution Width 13.2 % (9.3-17.3); White Blood Count 8.6 T/CUMM (4-12)
[2016-12-10 05:38] LABS: Calcium 8.1 MG/DL (8.5-10.1); Magnesium 1.9 MG/DL (1.8-2.4); Osmolality,Calculated 284.1 MOS/KG (273-304); Potassium 3.6 MMOL/L (3.5-5.1)
[2016-12-10 05:44] LABS: Risk Ratio 5.35
[2016-12-10] MEDS ORDERED: PANTOPRAZOLE 40 MG TABLET PO SCH (07:30)
--- NOTE | 2016-12-10 08:29 | Discharge Summary ---
Hospital Course - Hospital Course Hospital Course: Patient is a 66-year-old male with history of BPH, hypertension who was admitted with urinary tract infection and possible sepsis. He was started on broad-spectrum antibiotics. Patient was improving with his white count coming down. Yesterday he was unable to urinate. We tried to put in the Quinones catheter but found obstruction. He had a suprapubic catheter placed which came out twice. Dr. Nixno took him for cystoscopy. He was found to have a urethral stricture. He placed Quinones catheter. Patient is much more comfortable this morning. He had an episode of chest pain while in the hospital. It was felt to be noncardiac. He was seen in consultation by cardiology. He feels he is ready to go home. I have discussed with Dr. Nixon. He will be discharged after seen by Dr. Nixon. He will go with Quinones catheter. I will see him back in office in 10 days to 2 weeks. Diagnosis - Discharge Diagnosis (1) Acute urinary tract infection Status: Acute (2) Hyperlipidemia Status: Chronic (3) Hypertension Status: Chronic (4) Gastroesophageal reflux disease Status: Chronic (5) Osteoarthritis Status: Acute Discharge Plan - Discharge Data Disposition: Disch To Home/Self Care Condition at Discharge: Stable Discharge Diet: advance to your usual diet Activity: resume usual activities as tolerated - Discharge Medications New Levofloxacin Tab [Levaquin Tab] 500 mg PO DAILY #10 tablet Continue Atorvastatin [Lipitor] 10 mg PO BEDTIME NIFEdipine XL TAB [Procardia Xl] 90 mg PO BEDTIME Lansoprazole [Prevacid] 15 mg PO DAILY Atenolol 100 mg PO DAILY hydroCHLOROthiazide [Hydrochlorothiazide] 25 mg PO DAILY Changed Potassium Chloride Cap/Tab [Micro K] 8 meq PO BID #60 - Follow Up or Referral - Forms/Instructions Additional Discharge Instructions: Discharge to home after he is seen by Dr. Nixon. Appointment in 2 weeks in the office with CBC and a BMP. Please call in his medications on discharge which have been adjusted Exam - Constitutional Vitals: Period Temp Pulse Resp BP Sys/Lucio Pulse Ox Last 24 Hr 97.4 F-98.8 F 55-64 16-22 116-146/62-83 93-98 Exam: Examination: GENERAL: In no obvious discomfort HEENT: PERRLA. EOMI. NECK: Neck is supple. CVS: Regular rate and rhythm. S1 and S2 are normal. RESPIRATORY: Lungs are clear. ABDOMEN: Soft and nontender. EXT: No edema. FOOD SANITARIAN: Nonfocal MSK: No obvious deformity. Discharge Results Procedures and tests throughout hospitalization: Pending Orders 12/07/16 15:47 Blood Culture Stat 12/11/16 04:00 BMP w/ Mg [Basic Metabolic Panel w/Mg] IN AM 12/12/16 04:00 BMP w/ Mg [Basic Metabolic Panel w/Mg] IN AM 12/13/16 04:00 BMP w/ Mg [Basic Metabolic Panel w/Mg] IN AM 12/14/16 04:00 BMP w/ Mg [Basic Metabolic Panel w/Mg] IN AM Labs on day of discharge: Labs from last 24 hours 12/10/16 12/10/16 12/10/16 04:37 04:37 04:37 WBC 8.6 D RBC 3.98 Hgb 11.5 L D Hct 34.0 L MCV 85.4 L MCH 29 MCHC 33.8 RDW 13.2 Plt Count 204 MPV 11.3 Neut % (Auto) 63.5 Lymph % (Auto) 22.8 Lane % (Auto) 11.9 Eos % (Auto) 0.8 Baso % (Auto) 0.4 Neut # (Auto) 5.4 Lymph # (Auto) 2.0 Lane # (Auto) 1.0 H Eos # (Auto) 0.1 Baso # (Auto) 0.0 Immature Gran % 0.6 Nucleated RBC % 0.0 Immature Gran # 0.05 Nucleated RBCs # 0.00 Sodium 142 Potassium 3.6 Chloride 109 H Carbon Dioxide 24 Anion Gap 12.6 BUN 19 H Creatinine 1.00 GFR Calculation 102 BUN/Creatinine Ratio 19.00 Glucose 95 Calculated Osmolality 284.1 Calcium 8.1 L Magnesium 1.9 Triglycerides 155 H Cholesterol 123 LDL Cholesterol 73.0 VLDL Cholesterol 31.0 HDL Cholesterol 23 L Heart Disease Risk Ratio 5.35 PSA Diagnostic 12/09/16 06:13 WBC RBC Hgb Hct MCV MCH MCHC RDW Plt Count MPV Neut % (Auto) Lymph % (Auto) Lane % (Auto) Eos % (Auto) Baso % (Auto) Neut # (Auto) Lymph # (Auto) Lane # (Auto) Eos # (Auto) Baso # (Auto) Immature Gran % Nucleated RBC % Immature Gran # Nucleated RBCs # Sodium Potassium Chloride Carbon Dioxide Anion Gap BUN Creatinine GFR Calculation BUN/Creatinine Ratio Glucose Calculated Osmolality Calcium Magnesium Triglycerides Cholesterol LDL Cholesterol VLDL Cholesterol HDL Cholesterol Heart Disease Risk Ratio PSA Diagnostic 16.3 H Preliminary micro results at discharge 12/07/16 15:47 Blood Culture - Preliminary Blood No growth at 1 day 12/07/16 15:47 Blood Culture - Preliminary Blood No growth at 1 day DS: Provider Date of admission: 12/07/16 14:47 Primary care physician: Juan Adkins MD Attending physician on admission: Juan Adkins MD Consults: 12/07/16 14:14 Consult to Case Mgmt/Social Srvs [CONS] Routine Reason for Case Mgmt/Social Srvs: Discharge Planning 12/08/16 13:53 Consult to Physician [CONS] Routine Comment: chest pain Consulting Provider: Noe Cerrato Person Notified: [email or web address] Date Notified: 12/08/16 Time Notified: 13:54 12/09/16 09:14 Consult to Physician [CONS] Routine Comment: UTI and urinary retention Consulting Provider: Matheus Nixon Consult to Specialist Group: Urology Person Notified: [email or web address] Date Notified: 12/09/16 Time Notified: 09:05 Discharging clinician: Juan Adkins MD
[2016-12-10] MEDS: POTASSIUM CHLORIDE 8 MEQ CAPSULE PO SCH (09:11)
[2016-12-10] MEDS: hydroCHLOROthiazide 25 MG TABLET PO SCH (09:11)
[2016-12-10] MEDS: ATENOLOL 100 MG TABLET PO SCH (09:12)
[2016-12-10] MEDS: DOCUSATE SODIUM 100 MG CAPSULE PO SCH (09:12)
[2016-12-10] MEDS: PANTOPRAZOLE 40 MG TABLET PO SCH (09:12)
--- NOTE | 2016-12-10 09:13 | Urology Progress Note ---
Urology - PN: Subj Interval history: Patient is doing very well. He is not having any fever. His urine is clear. Catheter is working well. I feel he can go home. We will send him home with the catheter. He will see my nurse on 12/14/16 for catheter removal. I am going to place him on Flomax and Avodart. 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 Hopefully medication will improve things. Hopefully with time I can stop the Flomax but the Avodart I am going to keep long-term. I will follow him up in 2 weeks. Exam - Constitutional Vitals: Period Temp Pulse Resp BP Sys/Lucio Pulse Ox Last 24 Hr 97.4 F-98.8 F 55-64 16-22 116-146/62-83 93-98 Results - Labs CBC & BMP: 12/10/16 04:37 12/10/16 04:37
[2016-12-10 09:42] VITALS: BP 112/65
--- NOTE | 2016-12-10 10:00 | Cardiology Progress Note ---
Cardiology - PN: Subj Interval history: Cardiology note Taken to surgery last night by Dr. Matheus Nixon. Patient had urinary retention secondary to BPH and urethral stricture. Stricture was dilated and he underwent cystoscopy. Urine is clear today he feels dramatically better. No temperature. Telemetry shows sinus rhythm. Regular rhythm. No gallop. Clear lungs. Abdomen soft benign. No leg edema. Impression E. coli UTI BPH Urethral stricture Status post TURP GE reflux Plan IV antibiotics and fluids. Exam (Progress Note) - Constitutional Vitals: Period Temp Pulse Resp BP Sys/Lucio Pulse Ox Last 24 Hr 97.4 F-98.8 F 55-64 16-22 112-146/62-83 93-98 Result/EKG - Labs CBC & BMP: 12/10/16 04:37 12/10/16 04:37 Labs: Laboratory Results - last 24 hr 12/10/16 12/10/16 12/10/16 04:37 04:37 04:37 WBC 8.6 D RBC 3.98 Hgb 11.5 L D Hct 34.0 L MCV 85.4 L MCH 29 MCHC 33.8 RDW 13.2 Plt Count 204 MPV 11.3 Neut % (Auto) 63.5 Lymph % (Auto) 22.8 Garza % (Auto) 11.9 Eos % (Auto) 0.8 Baso % (Auto) 0.4 Neut # (Auto) 5.4 Lymph # (Auto) 2.0 Garza # (Auto) 1.0 H Eos # (Auto) 0.1 Baso # (Auto) 0.0 Immature Gran % 0.6 Nucleated RBC % 0.0 Immature Gran # 0.05 Nucleated RBCs # 0.00 Sodium 142 Potassium 3.6 Chloride 109 H Carbon Dioxide 24 Anion Gap 12.6 BUN 19 H Creatinine 1.00 GFR Calculation 102 BUN/Creatinine Ratio 19.00 Glucose 95 Calculated Osmolality 284.1 Calcium 8.1 L Magnesium 1.9 Triglycerides 155 H Cholesterol 123 LDL Cholesterol 73.0 VLDL Cholesterol 31.0 HDL Cholesterol 23 L Heart Disease Risk Ratio 5.35 Specialty Discharge - Follow Up or Referrals Follow up with: Matheus Nixon MD [Physician] - 12/14/16 9:30 am (SEE Dr. Nixon on December 29, 2016@2:30 )
--- NOTE | 2016-12-10 16:39 | Anesthesia Post-Op ---
Anesthesia Post OP - Post Ansesthetic Evaluation Patient seen in post op: Yes Resp: within normal limits CV: within normal limits Mental: within normal limits Temp: within normal limits Labf-Fk-Hgnrracem: within normal limits Nausea and Vomiting: within normal limits Pain: within normal limits
== END 2016-12-10 11:20 | disposition home or self-care (01) | DRG 690 ==
LOC: N.5E 14:47 → N.TELEN 12-08 14:56 → N.5E 12-09 20:32
PROVIDERS: ADMIT Internal Medicine; ATTEND Internal Medicine

== ENCOUNTER 2016-12-15 22:43 | Observation (INO) ==
[2016-12-15] MEDS ORDERED: ONDANSETRON 4 MG/2 ML VIAL IV STA (23:24)
--- NOTE | 2016-12-15 23:34 | Emergency Department Note ---
Arrival - Arrival Chief Complaint: Urogenital - Male Stated Complaint: urine retention c blood clots ED Nursing Triage Note: C/O Urinary retention/hematuria s/p having urinary catheter removed on Wednesday. Pt was admitted last Wednesday and had to have a cystoscope for a urinary catheter placement. Pt reports that yesterday he self cathed without much difficulty, but tonight when he attempted self cath he is getting blood clots. Dr. Carias was called and instructed him to come to ER. Mode of Arrival: Ambulatory Limitations: No Limitations Source: Patient Time Seen by Provider: 12/15/16 23:24 - History of Present Illness HPI Narrative: This 66-year-old white male presents 1 week post hospitalization for ureteral stricture and incipient urosepsis. He subsequently was discharged with a catheter in place which was withdrawn yesterday 4 days post discharge. After pulling the catheter he was to self catheterize. With the aid of home health he could not nor could the nurse catheterize him yesterday. They tried again today and did get one pass and decompression of the bladder. However, the patient was not able to do it again and in fact began having bleeding and passage of clots with repeated attempts. Currently he feels like he does have to evacuate. He denies any chills or fever and is on Levaquin. Onset (ago): day(s) (Patient presents 2 days post onset of symptoms.) Allergies/Adverse Reactions: Allergies Allergy/AdvReac Type Severity Reaction Status Date / Time No Known Allergies Allergy Verified 12/07/16 15:54 Home Medications: Home Medications Medication Instructions Recorded Confirmed Type Atenolol 100 mg PO DAILY 12/07/16 12/15/16 History Atorvastatin [Lipitor] 10 mg PO BEDTIME 12/07/16 12/15/16 History Lansoprazole [Prevacid] 15 mg PO DAILY 12/07/16 12/15/16 History NIFEdipine XL TAB [Procardia Xl] 90 mg PO BEDTIME 12/07/16 12/15/16 History hydroCHLOROthiazide 25 mg PO DAILY 12/07/16 12/15/16 History [Hydrochlorothiazide] Levofloxacin Tab [Levaquin Tab] 500 mg PO DAILY #10 tablet 12/10/16 12/15/16 Rx Potassium Chloride Cap/Tab [Micro 8 meq PO BID #60 12/10/16 12/15/16 Rx K] Dutasteride [Avodart] 0.5 mg PO DAILY 12/15/16 12/15/16 History Tamsulosin [Flomax] 0.4 mg PO DAILY 12/15/16 12/15/16 History Review of System - Review of System 12 point system: reviewed and no additional remarkable complaints except as stated - Review of System Constitutional: Present: as per HPI Genitourinary male: Present: as per HPI Medical,Surgical,& Family Hx - Medical History Cardio: History of: Hypertension Psychological: No history of: Anxiety Disorders, ADHD, Behavior Problems, Bipolar Disorder, Depression, Previous Suicide Attempt, Psychiatric/Substance Abuse Tx, Schizophrenia, Violent Behavior, Psychiatric Problems Endocrine: History of: Dyslipidemia Genitourinary: History of: Prostate Problems (TURP) Gastrointestinal: History of: GERD Musculoskeletal: History of: Back/Neck Problems, Musculoskeletal Problems ( Degenerative disc disease) - Surgical History Reproductive Surgeries: Surgical HX of;: Prostate Surgery (TURP) Orthopedic Surgeries: Surgical HX of;: Orthopedic Surgery (right arm surgery) - Family History Family History: Reports;: Family Heart Disease, Family Hypertension, Family Stroke - Social History Smoking Status: Never smoker Frequency of Alcohol Use: None Type of Drug Use: None Exam Physical Examination: GENERAL: Well developed, well nourished elderly white male in no acute distress. HEENT: Normocephalic. No trauma. Moist mucous membranes. EOMI. PERRLA. ENT NML NECK: Supple. No adenopathy. CARDIAC: Regular. No murmurs. Heart rate 69 CHEST: Clear to auscultation. No respiratory distress. O2 sat 97 per ABDOMEN: Soft. Full bladder with tender suprapubic area. Active bowel sounds. EXTREMITIES: No trauma. Normal ROM. No pedal edema. SKIN: No diaphoresis. No rash. NEURO: Alert. Neuro intact no focal deficits. Vital Signs: Vital Signs Temperature 97.5 F L 12/15/16 22:45 Pulse Rate 69 12/15/16 22:55 Respiratory Rate 19 12/15/16 22:55 Blood Pressure 129/96 12/15/16 22:55 O2 Sat by Pulse Oximetry 97 12/15/16 22:45 Course Course Narrative: The patient underwent Quinones catheterization with initially poor return. After multiple attempts at lavage ultimately flow began after passage of a large clot. Ultrasound of the bladder did reveal multiple clots at the base of the bladder. The patient did feel significantly better after evacuation. Patient subsequently had cessation of catheter flow. After discussion with Dr. Carias a #22 catheter was placed with lavage. Notable was passage of saline without resistance but no return. Of note, with fast ultrasound it was noted a significant amount of clot at the base of the bladder. - Consultations Consultation #1: Discussed with Dr. Carias who advised trying a larger bore catheter and if unsuccessful in beginning a stream with lavage proceed to admission for follow- up with Dr. Nixon in the morning. Results - Labs CBC & BMP: 12/16/16 00:19 12/16/16 00:19 Labs: I have reviewed the laboratory and noted the elevated white blood cell count Disposition Clinical Impression: Bladder outflow obstruction, Benign prostatic hypertrophy Case discussed with: patient, patient's family Disposition: Still a Patient Condition: Guarded Time of Disposition: 01:38
[2016-12-15] MEDS ORDERED: SODIUM CHLORIDE 0.9% 1,000 ML IV STA (23:35)
[2016-12-15] MEDS ORDERED: PHENAZOPYRIDINE 95 MG TABLET PO STA (23:53)
[2016-12-16] MEDS ORDERED: ONDANSETRON 4 MG/2 ML VIAL ONE (00:26)
[2016-12-16] MEDS ORDERED: PHENAZOPYRIDINE 95 MG TABLET ONE (00:27)
[2016-12-16 00:35] LABS: Basophils # 0.1 10*3/uL (0.0-0.2); Basophils % 0.4 % (0.0-0.8); Eosinophils # 0.3 10*3/uL (0.0-0.87); Eosinophils % 1.8 % (0.00-10.9); Hematocrit 38.9 VOL% (42.0-52.0); Hemoglobin 13.2 GM/DL (14.0-18.0); Immature Granulocytes % 2.8 %; Immature Granulocytes Absolute 0.38 #; Lymphocytes % 21.6 % (21.2-54.2); Mean Corpuscular HGB Conc 33.9 GM/DL (32-36); Mean Corpuscular Hemoglobin 29 PG (27-34); Mean Corpuscular Volume 85.1 FL (87-102); Monocytes # 0.9 10*3/uL (0.11-0.8); Monocytes % 6.2 % (1.7-12.7); Neutrophils # 9.2 10*3/uL (1.4-7.4); Neutrophils % 67.2 % (38.7-73.9); Platelet Count 359 T/CUMM (130-400); Red Blood Count 4.57 MC/CUMM (3.8-5.5); Red Cell Distribution Width 13.2 % (9.3-17.3); White Blood Count 13.7 T/CUMM (4-12)
[2016-12-16 00:57] LABS: Alanine Aminotransferase 43 U/L (16-61); Albumin 3.1 G/DL (3.4-5.0); Alkaline Phosphatase 90 U/L (45-117); Aspartate Amino Transferase 36 U/L (0-37); Bilirubin,Total < 0.39 MG/DL (0.2-1.0); Blood Urea Nitrogen 19 MG/DL (7-18); Calcium 9.2 MG/DL (8.5-10.1); Glucose 119 MG/DL (74-106); Osmolality,Calculated 288.8 MOS/KG (273-304); Potassium 3.9 MMOL/L (3.5-5.1); Sodium 144 MMOL/L (136-145); Total Protein 6.2 G/DL (6.4-8.3)
[2016-12-16] MEDS ORDERED: ONDANSETRON 4 MG/2 ML VIAL IV PRN (01:39)
[2016-12-16] MEDS ORDERED: ONDANSETRON 4 MG/2 ML VIAL IV STA (01:45)
[2016-12-16] MEDS ORDERED: HYDROmorphone 2 MG/1 ML VIAL ONE ×2 (01:45→01:48)
[2016-12-16] MEDS ORDERED: HYDROmorphone 2 MG/1 ML VIAL IV STA (01:45)
[2016-12-16] MEDS ORDERED: LIDOCAINE 2% 20 ML VIAL ONE (01:51)
[2016-12-16] MEDS ORDERED: LEVOFLOXACIN INJ 750 MG in PREMIX 1 EACH IV SCH (02:00)
[2016-12-16] MEDS ORDERED: LIDOCAINE 1% 5 ML VIAL MISC INJ ONE (02:21)
[2016-12-16 03:31] LABS: Apearance,Urine CLOUDY (Clear); Bilirubin,Urine Negative (Negative); Blood, Urine Moderate mg/dL (Negative); Glucose,Urine (UA) Negative (Negative); Ketones,Urine Negative (Negative); Nitrite,Urine Negative (Negative); Protein,Urine 100 MG/DL; RBC,Urine 7585 /HPF (0-4); Urine Color Red (Yellow); Urine Specific Gravity 1.006 (1.001-1.035); Urine Urobilinogen < 2.0 EU/DL (0.2-1.0); WBC,Urine 3 /HPF (0-6)
[2016-12-16] MEDS: HYDROmorphone 2 MG/1 ML VIAL IV PRN ×2 (03:51→08:11)
[2016-12-16 06:08] LABS: Basophils # 0.1 10*3/uL (0.0-0.2); Basophils % 0.3 % (0.0-0.8); Eosinophils # 0.2 10*3/uL (0.0-0.87); Eosinophils % 1.1 % (0.00-10.9); Hematocrit 38.8 VOL% (42.0-52.0); Hemoglobin 13.1 GM/DL (14.0-18.0); Immature Granulocytes Absolute 0.37 #; Lymphocytes # 2.6 10*3/uL (1.4-4.0); Lymphocytes % 14.2 % (21.2-54.2); Mean Corpuscular HGB Conc 33.8 GM/DL (32-36); Mean Corpuscular Hemoglobin 29 PG (27-34); Mean Corpuscular Volume 85.1 FL (87-102); Mean Platelet Volume 10.2 FL (9.6-12.0); Monocytes # 0.9 10*3/uL (0.11-0.8); Monocytes % 4.9 % (1.7-12.7); Neutrophils # 14.3 10*3/uL (1.4-7.4); Neutrophils % 77.5 % (38.7-73.9); Platelet Count 354 T/CUMM (130-400); Red Blood Count 4.56 MC/CUMM (3.8-5.5); Red Cell Distribution Width 13.2 % (9.3-17.3); White Blood Count 18.5 T/CUMM (4-12)
[2016-12-16 06:16] LABS: PT Patient Result 10.7 SECS; Partial Thromboplastin Time 26.8 SECS (0-40)
[2016-12-16 06:39] LABS: Albumin 3.2 G/DL (3.4-5.0); Bilirubin,Total 0.7 MG/DL (0.2-1.0); Calcium 9.3 MG/DL (8.5-10.1); Potassium 3.9 MMOL/L (3.5-5.1)
[2016-12-16] MEDS ORDERED: ATENOLOL 25 MG TABLET PO SCH (09:00)
[2016-12-16] MEDS ORDERED: PANTOPRAZOLE 40 MG TABLET PO SCH (09:00)
[2016-12-16] MEDS ORDERED: ATORVASTATIN 40 MG TABLET PO SCH (09:00)
[2016-12-16] MEDS ORDERED: TAMSULOSIN 0.4 MG CAPSULE PO SCH (09:00)
[2016-12-16 15:52] VITALS: BP 140/79
--- NOTE | 2016-12-16 18:23 | History and Physical Update ---
History and Physical Update - Dictation Physical: refer to scanned H&P - Physical Exam Mental Status: alert and oriented Heart: regular rate and rhythm Lung: clear to auscultation Abdomen: within normal limits (Healing suprapubic site) Vitals: within normal limits History and Physical Changes: Patient was seen in the emergency room again and admitted overnight. He could not void and was having trouble with intermittent cath. He had a catheter placed that I think was in his prostatic urethra. I discussed the case with my nurse who came by and removed his catheter and inserted another catheter and he is feeling well his urine is remained clear.
--- NOTE | 2016-12-16 18:25 | Discharge Summary ---
Hospital Course - Hospital Course Hospital Course: Patient was seen in the emergency room with bleeding and urinary retention with difficulty intermittent cath. He had a catheter placed that was probably not in his bladder. It was removed and replaced with a coud catheter he has been feeling well since. His urine has remained clear. I have discussed the options. We will leave the catheter for a few weeks. He has an appointment on the sixth. We will see him then. - Time spent with patient Time with patient DS: Greater than 30 minutes Discharge Plan - Discharge Data Disposition: Disch To Home/Self Care Condition at Discharge: Stable Discharge Diet: advance to your usual diet Activity: no lifting, other (Minimal walking on flat ground is encouraged) Hygiene: no restrictions Weight Bearing at Discharge: full weight bearing Driving: not until seen by doctor Contact your physician if you experience:: fever over 101, Bleeding, pain uncontrolled by pain medications - Discharge Medications No Action Atorvastatin [Lipitor] 10 mg PO BEDTIME NIFEdipine XL TAB [Procardia Xl] 90 mg PO BEDTIME Lansoprazole [Prevacid] 15 mg PO DAILY Atenolol 100 mg PO DAILY Potassium Chloride Cap/Tab [Micro K] 8 meq PO BID #60 hydroCHLOROthiazide [Hydrochlorothiazide] 25 mg PO DAILY Levofloxacin Tab [Levaquin Tab] 500 mg PO DAILY #10 tablet Tamsulosin [Flomax] 0.4 mg PO DAILY Dutasteride [Avodart] 0.5 mg PO DAILY - Follow Up or Referral - Forms/Instructions Exam - Constitutional Vitals: Period Temp Pulse Resp BP Sys/Lucio Pulse Ox Last 24 Hr 97.9 F-99.4 F 53-70 16-83 117-159/70-92 92-99 Discharge Results Labs on day of discharge: Labs from last 24 hours 12/16/16 12/16/16 12/16/16 05:42 05:42 05:42 WBC 18.5 H D RBC 4.56 Hgb 13.1 L Hct 38.8 L MCV 85.1 L MCH 29 MCHC 33.8 RDW 13.2 Plt Count 354 MPV 10.2 Neut % (Auto) 77.5 H Lymph % (Auto) 14.2 L Beckham % (Auto) 4.9 Eos % (Auto) 1.1 Baso % (Auto) 0.3 Neut # (Auto) 14.3 H Lymph # (Auto) 2.6 Beckham # (Auto) 0.9 H Eos # (Auto) 0.2 Baso # (Auto) 0.1 Immature Gran % 2.0 Nucleated RBC % 0.0 Immature Gran # 0.37 Nucleated RBCs # 0.00 INR 1.0 PT Patient/Control Mix 10.7 Circ Anticoag PTT 26.8 Sodium 143 Potassium 3.9 Chloride 108 H Carbon Dioxide 25 Anion Gap 13.9 BUN 17 Creatinine 1.20 GFR Calculation 81 BUN/Creatinine Ratio 14.00 Glucose 118 H Calculated Osmolality 287.0 Calcium 9.3 Total Bilirubin 0.70 AST 29 ALT 44 Alkaline Phosphatase 85 Total Protein 6.0 L Albumin 3.2 L Globulin 2.8 Albumin/Globulin Ratio 1.1 Urine Color Urine Appearance Urine pH Ur Specific Gamaliel Urine Protein Urine Glucose (UA) Urine Ketones Urine Blood Urine Nitrate Urine Bilirubin Urine Urobilinogen Urine Leukocytes Urine RBC Urine WBC Ur Culture Indicated? 12/16/16 03:10 WBC RBC Hgb Hct MCV MCH MCHC RDW Plt Count MPV Neut % (Auto) Lymph % (Auto) Beckham % (Auto) Eos % (Auto) Baso % (Auto) Neut # (Auto) Lymph # (Auto) Beckham # (Auto) Eos # (Auto) Baso # (Auto) Immature Gran % Nucleated RBC % Immature Gran # Nucleated RBCs # INR PT Patient/Control Mix Circ Anticoag PTT Sodium Potassium Chloride Carbon Dioxide Anion Gap BUN Creatinine GFR Calculation BUN/Creatinine Ratio Glucose Calculated Osmolality Calcium Total Bilirubin AST ALT Alkaline Phosphatase Total Protein Albumin Globulin Albumin/Globulin Ratio Urine Color Red Urine Appearance Cloudy Urine pH 6.0 Ur Specific Gamaliel 1.006 Urine Protein 100 Urine Glucose (UA) Negative Urine Ketones Negative Urine Blood Moderate Urine Nitrate Negative Urine Bilirubin Negative Urine Urobilinogen < 2.0 H Urine Leukocytes Negative Urine RBC 7585 Urine WBC 3 Ur Culture Indicated? Ordered separately DS: Provider Date of admission: 12/16/16 01:38 Primary care physician: Juan Adkins MD Attending physician on admission: Matheus Nixon MD Discharging clinician: Matheus Nixon MD
== END 2016-12-16 19:40 | disposition home or self-care (01) ==
LOC: N.ED 22:43 → N.EDINP 12-16 01:38 → INTOOBSV 12-16 01:38 → N.3E 12-16 02:03
PROVIDERS: ADMIT Urology; ATTEND Urology

== ENCOUNTER 2021-09-25 13:09 | Observation (INO) ==
[2021-09-25 14:07] LABS: Basophils % 0.4 % (0.0-0.8); Eosinophils # 0.1 10*3/uL (0.0-0.87); Eosinophils % 0.8 % (0.00-10.9); Hematocrit 48.7 VOL% (42.0-52.0); Hemoglobin 16.3 GM/DL (14.0-18.0); Immature Granulocytes % 0.3 %; Immature Granulocytes Absolute 0.03 #; Lymphocytes # 3.4 10*3/uL (1.4-4.0); Lymphocytes % 36.8 % (21.2-54.2); Mean Corpuscular HGB Conc 33.5 GM/DL (32-36); Mean Corpuscular Volume 84.5 FL (87-102); Mean Platelet Volume 10.3 FL (9.6-12.0); Neutrophils % 53.7 % (38.7-73.9); Platelet Count 258 T/CUMM (130-400); Red Blood Count 5.76 MC/CUMM (3.8-5.5); Red Cell Distribution Width 12.8 % (9.3-17.3); White Blood Count 9.2 T/CUMM (4-12)
[2021-09-25] MEDS ORDERED: NITROGLYCERIN SL 0.4 MG TABLET SL ONE (14:16)
[2021-09-25] MEDS ORDERED: NITROGLYCERIN SL 0.4 MG TABLET SL PRN (14:17)
[2021-09-25] MEDS ORDERED: ENOXAPARIN 100 MG/ML SYRINGE SUBCUT STA (14:17)
[2021-09-25] MEDS ORDERED: NITROGLYCERIN 2% OINT 1 INCH/GM PACK TOP STA (14:17)
[2021-09-25] MEDS ORDERED: ASPIRIN 325 MG TABLET PO STA (14:17)
[2021-09-25] MEDS ORDERED: METOPROLOL TARTRATE 5 MG/5 ML VIAL IV STA (14:21)
[2021-09-25] MEDS ORDERED: METOPROLOL TARTRATE 5 MG/5 ML VIAL IV ONE (14:22)
[2021-09-25] MEDS ORDERED: MORPHINE 4 MG/1 ML VIAL ONE (14:27)
[2021-09-25] MEDS ORDERED: ONDANSETRON 4 MG/2 ML VIAL ONE (14:27)
[2021-09-25] MEDS ORDERED: MORPHINE 4 MG/1 ML VIAL IV STA (14:30)
[2021-09-25] MEDS ORDERED: ONDANSETRON 4 MG/2 ML VIAL IV STA (14:30)
[2021-09-25 14:40] LABS: Albumin 4.1 G/DL (3.4-5.0); Bilirubin,Total 0.6 MG/DL (0.20-1.00); Osmolality,Calculated 274.8 MOS/KG (273-304); Potassium 3.3 MMOL/L (3.5-5.1); Total Protein 7.6 G/DL (6.4-8.2)
[2021-09-25] MEDS ORDERED: POTASSIUM CHLORIDE 20 MEQ TABLET PO PRN (14:48)
[2021-09-25] MEDS ORDERED: DOCUSATE SODIUM 100 MG CAPSULE PO PRN (14:48)
[2021-09-25] MEDS ORDERED: ONDANSETRON 4 MG/2 ML VIAL IV PRN (14:48)
[2021-09-25] MEDS ORDERED: ACETAMINOPHEN 325 MG TABLET PO PRN (14:48)
[2021-09-25] MEDS ORDERED: MORPHINE 2 MG/1 ML SYRINGE IV PRN (14:48)
[2021-09-25] MEDS ORDERED: diphenhydrAMINE CAP 25 MG CAPSULE PO PRN (14:48)
[2021-09-25] MEDS ORDERED: hydrALAZINE 20 MG/1 ML VIAL IV PRN (14:48)
[2021-09-25] MEDS ORDERED: PROMETHAZINE 25 MG TABLET PO PRN (14:48)
[2021-09-25] MEDS ORDERED: ZALEPLON 5 MG CAPSULE PO PRN (14:48)
[2021-09-25] MEDS ORDERED: MAGNESIUM SULF RIDER 4 GM/100 ML PREMIX IV PRN (14:48)
[2021-09-25] MEDS ORDERED: guaiFENesin/DM ER 600-30 MG TABLET PO PRN (14:48)
[2021-09-25] MEDS ORDERED: MAGNESIUM SULF RIDER 2 GM/50 ML PREMIX IV PRN (14:48)
[2021-09-25] MEDS ORDERED: ALUMINUM/MAGNES/SIMETH MAX STR 30 ML UDCUP PO PRN (14:48)
[2021-09-25] MEDS ORDERED: diphenhydrAMINE CAP 50 MG CAPSULE PO ONE (14:50)
[2021-09-25] MEDS ORDERED: DIAZEPAM 5 MG TABLET PO ONE (14:50)
[2021-09-25] MEDS ORDERED: POTASSIUM CHLORIDE RIDER 10 MEQ/100 ML PREMIX IV PRN (15:31)
[2021-09-25] MEDS ORDERED: HYDROmorphone 1 MG/1 ML SYRINGE ONE (15:35)
[2021-09-25] MEDS ORDERED: MIDAZOLAM 2 MG/2 ML VIAL ONE (15:35)
[2021-09-25] MEDS ORDERED: LIDOCAINE 1% 20 ML VIAL ONE (15:36)
[2021-09-25] MEDS ORDERED: VERAPAMIL 5 MG/2 ML VIAL ONE (15:37)
[2021-09-25] MEDS ORDERED: NITROGLYCERIN DRIP 50 MG/250 ML BOTTLE IV ONE (15:37)
[2021-09-25] MEDS ORDERED: ENOXAPARIN 60 MG/0.6 ML SYRINGE ONE (15:50)
[2021-09-25] MEDS: SODIUM CHLORIDE 0.45% 1,000 ML IV SCH ×2 (18:20→22:36)
[2021-09-25] MEDS: ALBUTEROL 2.5 MG/3 ML NEB RESP TX SCH (19:37)
[2021-09-25] MEDS: DILTIAZEM CD 120 MG CAPSULE PO SCH (20:31)
[2021-09-26] MEDS: ALBUTEROL 2.5 MG/3 ML NEB RESP TX SCH ×3 (00:31→14:31)
[2021-09-26 05:20] LABS: Basophils % 0.4 % (0.0-0.8); Eosinophils # 0.1 10*3/uL (0.0-0.87); Hemoglobin 13.9 GM/DL (14.0-18.0); Immature Granulocytes % 0.4 %; Immature Granulocytes Absolute 0.04 #; Lymphocytes # 1.8 10*3/uL (1.4-4.0); Lymphocytes % 17.9 % (21.2-54.2); Mean Corpuscular HGB Conc 33.1 GM/DL (32-36); Mean Corpuscular Volume 86.8 FL (87-102); Mean Platelet Volume 10.8 FL (9.6-12.0); Monocytes % 8.9 % (1.7-12.7); Neutrophils % 71.4 % (38.7-73.9); Platelet Count 210 T/CUMM (130-400); Red Blood Count 4.84 MC/CUMM (3.8-5.5); Red Cell Distribution Width 13.2 % (9.3-17.3); White Blood Count 10.3 T/CUMM (4-12)
[2021-09-26 05:47] LABS: Bilirubin,Total 0.4 MG/DL (0.20-1.00); Calcium 8.9 MG/DL (8.5-10.1); Osmolality,Calculated 276.7 MOS/KG (273-304); Potassium 3.4 MMOL/L (3.5-5.1); Risk Ratio 3.16; Thyroid Stimulating Hormone 1.56 uIU/ml (0.358-3.74); VLDL Cholesterol 21.8 MG/DL
[2021-09-26] MEDS ORDERED: PANTOPRAZOLE 40 MG TABLET PO SCH (09:00)
[2021-09-26] MEDS: DILTIAZEM CD 120 MG CAPSULE PO SCH (09:50)
[2021-09-26] MEDS: SODIUM CHLORIDE 0.45% 1,000 ML IV SCH (11:59)
[2021-09-26 12:22] VITALS: BP 148/77
[2021-09-26] MEDS ORDERED: POTASSIUM CHLORIDE 20 MEQ TABLET PO ONE (12:30)
[2021-09-26] MEDS ORDERED: ATORVASTATIN 40 MG TABLET PO SCH (21:00)
== END 2021-09-26 14:25 | disposition home or self-care (01) ==
LOC: N.ED 13:09 → N.EDINP 14:48 → INTOOBSV 14:48 → N.TELEN 16:26
PROVIDERS: ADMIT Internal Medicine Cardiovascular Disease; ATTEND Internal Medicine Cardiovascular Disease
PROC: CLCCHCL (ICD-10-PCS; 2021-09-25 16:15)